=== PATIENT | female | born 1980 | race Caucasian/White ===

== ENCOUNTER 2021-11-21 20:25 | Observation (INO) ==
[2021-11-21 20:56] LABS: Basophils % 0.3 %; Eosinophils % 0.2 %; Hematocrit 46.1 % (35.3-44.9); Hemoglobin 15.5 g/dL (11.5-15.4); Immature Granulocytes % 0.3 % (0-4); Lymphocytes # 3.6 K/mcL (0.6-4.6); Lymphocytes % 31.2 %; Mean Corpuscular HGB Conc 33.6 g/dL (31.6-35.5); Mean Corpuscular Hemoglobin 28.9 pg (28.0-33.3); Mean Platelet Volume 9.6 fL (9.4-12.4); Monocytes # 0.4 K/mcL (0.0-1.3); Monocytes % 3.2 %; Neutrophils # 7.4 K/mcL (1.6-8.9); Platelet Count 171 K/mcL (140-400); Red Blood Count 5.36 M/mcL (3.82-4.97); Red Cell Distribution Width 13.4 % (11.5-14.5); Segmented Neutrophils % 64.8 %; White Blood Count 11.5 K/mcL (4.3-11.1)
[2021-11-21 21:06] LABS: INR 0.9; Prothrombin Time 10.4 Seconds (9.4-12.1)
[2021-11-21 21:09] LABS: Activated Partial Thrombo Time 33.5 Seconds (26.0-36.0)
[2021-11-21 21:16] LABS: BUN/Creatinine Ratio 13 (6-26); Blood Urea Nitrogen 15 mg/dL (6-20); Calcium 10.2 mg/dL (8.6-10.3); Carbon Dioxide 21 mEq/L (23-29); Chloride 105 mEq/L (98-107); Glucose 132 mg/dL (70-105); Osmolality,Calculated 285 (280-300); Potassium 3.7 mEq/L (3.5-5.1); Sodium 136 mEq/L (136-145); eGFR For African Americans > 60 (> 60); eGFR For Non-African Americans 53 (> 60)
[2021-11-21 21:18] LABS: Troponin I 0.23 ng/mL (< 0.04)
[2021-11-21 21:29] LABS: Amorphous Sediment,Urine Few per hpf (None-Few); Bacteria,Urine Few per hpf (None-Few); Bilirubin,Urine Negative (Negative); Blood,Urine Small (Negative); Calcium Oxalate Crystals,Urine Present per hpf; Clarity,Urine Turbid (Clear); Color,Urine Yellow (Yellow); Glucose,Urine (UA) Normal (Normal); Ketones,Urine Negative (Negative); Leukocyte Esterase,Urine Large (Negative); Mucus,Urine Few per lpf (None-Few); Nitrite,Urine Positive (Negative); PH,Urine 6.5 pH Units (5.0-8.0); Protein,Urine 200 mg/dL (Neg-Trace); Specific Gravity,Urine 1.015 (1.010-1.025); Squamous Epithelial Cell,Urine Few per hpf (None-Few); Urobilinogen,Urine Normal (Normal); WBC,Urine TNTC per hpf (0-3)
[2021-11-21] MEDS ORDERED: cefTRIAXone 1,000 MG in Water for inj. (sterile) 10 ML IVP ONE (21:39)
[2021-11-21 21:42] LABS: Alanine Aminotransferase 13 Units/L (7-52); Alkaline Phosphatase 97 Units/L (34-104); Aspartate Amino Transferase 15 Units/L (13-39); Bilirubin,Indirect 0.5 mg/dL (0.0-1.0); Bilirubin,Total 0.5 mg/dL (0.3-1.0); Lipase 19 Units/L (11-82)
[2021-11-21] MEDS: Nitroglycerin 0.4 MG TAB.SUBL SL PRN ×3 (21:45→21:56)
[2021-11-21] MEDS ORDERED: *HR* Heparin 5,000 UNIT/ML VIAL IVP ONE (21:51)
[2021-11-21] MEDS ORDERED: *HR* Heparin 5,000 UNIT/ML VIAL IVP PRN (21:51)
[2021-11-21] MEDS: Heparin 25,000UNIT/250ML 1/2NS 25,000 UNIT/250 ML IV.SOLN IVC SCH (22:39)
[2021-11-21 22:53] LABS: Influenza A PCR Negative (Negative); Influenza B PCR Negative (Negative); Resp. Syncytial Virus PCR Negative (Negative)
[2021-11-21 22:55] LABS: SARS-CoV-2 by PCR (In House) Negative (Negative)
[2021-11-21] MEDS ORDERED: Ondansetron 4 MG/2 ML VIAL IVP PRN (23:42)
[2021-11-21] MEDS ORDERED: Melatonin 3 MG TABLET PO PRN (23:42)
[2021-11-21] MEDS ORDERED: Naloxone 0.4 MG/ML INJ IVP PRN (23:42)
[2021-11-22] MEDS ORDERED: Perflutren Lipid Microsphere 1.3 ML in 0.9 % Sodium Chloride 8.7 ML IVP PRN (00:08)
[2021-11-22] MEDS ORDERED: Mycophenolate Sodium (DR) 180 MG TABLET.DR PO SCH (00:15)
[2021-11-22] MEDS ORDERED: ECULIZUMAB IV SCH (00:15)
[2021-11-22] MEDS ORDERED: (Everolimus [Zortress] 0.5 MG Tablet) PO SCH (00:15)
[2021-11-22 04:31] LABS: Basophils % 0.3 %; Eosinophils % 0.2 %; Hematocrit 38.1 % (35.3-44.9); Hemoglobin 12.4 g/dL (11.5-15.4); Immature Granulocytes % 0.2 % (0-4); Lymphocytes # 3.6 K/mcL (0.6-4.6); Lymphocytes % 37.5 %; Mean Corpuscular HGB Conc 32.5 g/dL (31.6-35.5); Mean Corpuscular Hemoglobin 28.7 pg (28.0-33.3); Mean Platelet Volume 10.1 fL (9.4-12.4); Monocytes # 0.5 K/mcL (0.0-1.3); Monocytes % 5.1 %; Neutrophils # 5.4 K/mcL (1.6-8.9); Platelet Count 145 K/mcL (140-400); Red Blood Count 4.32 M/mcL (3.82-4.97); Red Cell Distribution Width 13.6 % (11.5-14.5); Segmented Neutrophils % 56.7 %; White Blood Count 9.6 K/mcL (4.3-11.1)
[2021-11-22 04:40] LABS: Heparin anti-factor XA UFH 0.25 IU/mL (0.30-0.70)
[2021-11-22 04:41] LABS: Prothrombin Time 10.6 Seconds (9.4-12.1)
[2021-11-22 04:44] LABS: Mean Corpuscular Volume 88.2 fL (83.0-100.0)
[2021-11-22 04:54] LABS: Alanine Aminotransferase 11 Units/L (7-52); Albumin 3.5 g/dL (3.5-5.7); Albumin/Globulin Ratio 1.3 (1.1-2.2); Alkaline Phosphatase 83 Units/L (34-104); Aspartate Amino Transferase 15 Units/L (13-39); BUN/Creatinine Ratio 14 (6-26); Bilirubin,Total 0.4 mg/dL (0.3-1.0); Blood Urea Nitrogen 15 mg/dL (6-20); Calcium 9.5 mg/dL (8.6-10.3); Carbon Dioxide 22 mEq/L (23-29); Chloride 107 mEq/L (98-107); Globulin 2.8 g/dL (2.4-3.5); Glucose 100 mg/dL (70-105); Magnesium 1.9 mg/dL (1.6-2.6); Osmolality,Calculated 285 (280-300); Phosphorous 2.5 mg/dL (2.7-4.5); Sodium 137 mEq/L (136-145); Total Protein 6.3 g/dL (6.4-8.9); eGFR For African Americans > 60 (> 60); eGFR For Non-African Americans 55 (> 60)
[2021-11-22] MEDS: Metoprolol 100 MG TABLET PO SCH ×2 (08:35→20:30)
[2021-11-22] MEDS: Aspirin Enteric Coated 81 MG Tablet PO SCH (08:35)
[2021-11-22] MEDS: cloNIDine HCL 0.1 MG TABLET PO SCH ×2 (08:35→20:30)
[2021-11-22] MEDS: Mycophenolate Sodium (DR) 180 MG TABLET.DR PO SCH ×2 (09:52→20:30)
[2021-11-22] MEDS: EVEROLIMUS 0.75 MG PO SCH ×2 (12:06→22:09)
[2021-11-22] MEDS: *HR* Heparin 5,000 UNIT/ML VIAL IVP PRN ×2 (13:19→20:10)
[2021-11-22] MEDS: Nitroglycerin 0.4 MG TAB.SUBL SL PRN (15:22)
[2021-11-22] MEDS ORDERED: Morphine Sulfate 2 MG/ML SYRINGE IVP PRN (15:22)
[2021-11-22] MEDS: 0.9 % Sodium Chloride 1,000 ML IVC SCH (20:22)
[2021-11-22] MEDS ORDERED: EVEROLIMUS 0.75 MG PO SCH (21:00)
[2021-11-22] MEDS ORDERED: cefTRIAXone 1,000 MG in 0.9 % Sodium Chloride Mini Bag 100 ML IVPB SCH (22:00)
[2021-11-22] MEDS: cefTRIAXone 1,000 MG in 0.9 % Sodium Chloride 10 ML IVPB SCH (22:12)
[2021-11-22] MEDS ORDERED: 0.9 % Sodium Chloride 1,000 ML IVC SCH (23:00)
[2021-11-23 03:08] LABS: Basophils % 0.4 %; Eosinophils # 0.1 K/mcL (0.0-0.6); Eosinophils % 0.7 %; Hematocrit 38.8 % (35.3-44.9); Hemoglobin 12.5 g/dL (11.5-15.4); Immature Granulocytes % 0.3 % (0-4); Lymphocytes % 44.7 %; Mean Corpuscular HGB Conc 32.2 g/dL (31.6-35.5); Mean Corpuscular Hemoglobin 28.7 pg (28.0-33.3); Mean Corpuscular Volume 89.2 fL (83.0-100.0); Monocytes # 0.5 K/mcL (0.0-1.3); Monocytes % 5.3 %; Neutrophils # 4.4 K/mcL (1.6-8.9); Platelet Count 152 K/mcL (140-400); Red Blood Count 4.35 M/mcL (3.82-4.97); Red Cell Distribution Width 13.5 % (11.5-14.5); Segmented Neutrophils % 48.6 %
[2021-11-23 03:28] LABS: Alanine Aminotransferase 15 Units/L (7-52); Albumin 3.3 g/dL (3.5-5.7); Alkaline Phosphatase 79 Units/L (34-104); Aspartate Amino Transferase 17 Units/L (13-39); BUN/Creatinine Ratio 13 (6-26); Bilirubin,Total 0.3 mg/dL (0.3-1.0); Blood Urea Nitrogen 12 mg/dL (6-20); Calcium 9.2 mg/dL (8.6-10.3); Carbon Dioxide 22 mEq/L (23-29); Chloride 107 mEq/L (98-107); Globulin 3.4 g/dL (2.4-3.5); Glucose 103 mg/dL (70-105); Osmolality,Calculated 282 (280-300); Sodium 136 mEq/L (136-145); Total Protein 6.7 g/dL (6.4-8.9); eGFR For African Americans > 60 (> 60); eGFR For Non-African Americans > 60 (> 60)
[2021-11-23] MEDS: Heparin 25,000UNIT/250ML 1/2NS 25,000 UNIT/250 ML IV.SOLN IVC SCH (09:09)
[2021-11-23] MEDS: Aspirin Enteric Coated 81 MG Tablet PO SCH (09:14)
[2021-11-23] MEDS: cloNIDine HCL 0.1 MG TABLET PO SCH ×2 (09:15→21:20)
[2021-11-23] MEDS: Metoprolol 100 MG TABLET PO SCH ×2 (09:15→21:21)
[2021-11-23] MEDS: Mycophenolate Sodium (DR) 180 MG TABLET.DR PO SCH ×2 (09:47→21:24)
[2021-11-23] MEDS: EVEROLIMUS 0.75 MG PO SCH ×2 (09:48→21:23)
[2021-11-23] MEDS: 0.9 % Sodium Chloride 1,000 ML IVC SCH (10:24)
[2021-11-23] MEDS ORDERED: 0.9 % Sodium Chloride 1,000 ML ONE (12:38)
[2021-11-23] MEDS ORDERED: ISOVUE-370 200 ML INFUS..BTL ONE (12:38)
[2021-11-23] MEDS ORDERED: Heparin 1,000 UNITS/500 mL 500 ML ONE (12:38)
[2021-11-23] MEDS ORDERED: *HR* Midazolam HCl 2 MG/2 ML VIAL ONE ×3 (12:38→14:31)
[2021-11-23] MEDS ORDERED: *HR* Heparin 10,000 UNIT/10 ML VIAL ONE (12:38)
[2021-11-23] MEDS ORDERED: *HR* FentaNYL (PF) 100 MCG/2 ML VIAL ONE ×2 (12:38→14:30)
[2021-11-23] MEDS ORDERED: Nitroglycerin 1,000 MCG/5 ML VIAL IV ONE (12:39)
[2021-11-23] MEDS ORDERED: Nitroglycerin Spray 4.9 GM BOTTLE ONE (14:23)
[2021-11-23] MEDS ORDERED: *HR* Ticagrelor 90 MG TABLET ONE (14:31)
[2021-11-23] MEDS ORDERED: Acetaminophen 325 MG TABLET PO PRN (20:28)
[2021-11-23] MEDS: cefTRIAXone 1,000 MG in 0.9 % Sodium Chloride 10 ML IVPB SCH (21:19)
[2021-11-23] MEDS: *HR* Ticagrelor 90 MG TABLET PO SCH (21:21)
[2021-11-24 04:10] LABS: Basophils % 0.3 %; Eosinophils % 0.6 %; Hematocrit 35.9 % (35.3-44.9); Hemoglobin 11.8 g/dL (11.5-15.4); Immature Granulocytes % 0.1 % (0-4); Lymphocytes # 2.6 K/mcL (0.6-4.6); Lymphocytes % 38.8 %; Mean Corpuscular HGB Conc 32.9 g/dL (31.6-35.5); Mean Corpuscular Hemoglobin 28.9 pg (28.0-33.3); Mean Platelet Volume 9.9 fL (9.4-12.4); Monocytes # 0.5 K/mcL (0.0-1.3); Monocytes % 7.7 %; Neutrophils # 3.6 K/mcL (1.6-8.9); Platelet Count 150 K/mcL (140-400); Red Blood Count 4.08 M/mcL (3.82-4.97); Red Cell Distribution Width 13.2 % (11.5-14.5); Segmented Neutrophils % 52.5 %; White Blood Count 6.8 K/mcL (4.3-11.1)
[2021-11-24 04:33] LABS: Alanine Aminotransferase 19 Units/L (7-52); Albumin 3.1 g/dL (3.5-5.7); Alkaline Phosphatase 74 Units/L (34-104); Aspartate Amino Transferase 17 Units/L (13-39); BUN/Creatinine Ratio 9 (6-26); Bilirubin,Total 0.5 mg/dL (0.3-1.0); Blood Urea Nitrogen 9 mg/dL (6-20); Calcium 8.8 mg/dL (8.6-10.3); Carbon Dioxide 22 mEq/L (23-29); Chloride 107 mEq/L (98-107); Glucose 81 mg/dL (70-105); Osmolality,Calculated 280 (280-300); Potassium 3.6 mEq/L (3.5-5.1); Sodium 136 mEq/L (136-145); Total Protein 6.1 g/dL (6.4-8.9); eGFR For African Americans > 60 (> 60); eGFR For Non-African Americans > 60 (> 60)
[2021-11-24] MEDS: Mycophenolate Sodium (DR) 180 MG TABLET.DR PO SCH (09:24)
[2021-11-24] MEDS: Metoprolol 100 MG TABLET PO SCH (09:25)
[2021-11-24] MEDS: cloNIDine HCL 0.1 MG TABLET PO SCH (09:26)
[2021-11-24] MEDS: *HR* Ticagrelor 90 MG TABLET PO SCH (09:27)
[2021-11-24] MEDS: Aspirin Enteric Coated 81 MG Tablet PO SCH (09:27)
[2021-11-24] MEDS: EVEROLIMUS 0.75 MG PO SCH (09:27)
[2021-11-24 11:11] VITALS: BP 143/77
[2021-11-24 11:33] VITALS: PULSE 55; TEMP 98.9; O2SAT 99
[2021-11-24] MEDS ORDERED: NIFEdipine XL (24 HR) 60 MG TAB.ER.24 PO SCH (21:00)
== END 2021-11-24 13:00 | disposition home or self-care (01) ==
LOC: 3NENU 20:25 → EMEROOARM 20:25 → SUATTDRO 22:51 → 3NENU 23:32
PROVIDERS: ADMIT Internal Medicine; ATTEND Family Medicine